=== PATIENT | female | born 1970 | race Caucasian/White ===

== ENCOUNTER → 2017-11-30 | Outpatient (CLI) | payer BC ==
--- NOTE | 2017-11-30 13:55 | RADIOLOGY IMAGING REPORT ---
FACILITY: [facility] PATIENT NAME: CHELLY HULL : [id number] MR: [id number] V: [id number] EXAM DATE: ORDERING PHYSICIAN: ANGEL ALBERTS TECHNOLOGIST: Jessica Rinaldi PROCEDURE:BILATERAL DIGITAL SCREENING MAMMOGRAM WITH CAD ASSISTED INTERPRETATION & 3D TOMOSYNTHESIS COMPARISON:Prior mammograms 07/26/16, 06/23/15, 05/28/14, 05/08/13, 04/18/12, 03/22/11. INDICATIONS:SCREENING FINDINGS: Mildly heterogeneous fibroglandular tissue is seen throughout the breasts. The parenchymal pattern has remained stable allowing for difference in mammographic technique & patient positioning. There is no evidence of malignant appearing mass, malignant appearing calcifications or other secondary sign of malignancy in either breast. DIAGNOSTIC CATEGORY 2--BENIGN FINDING. RECOMMENDATIONS: ROUTINE MAMMOGRAM AND CLINICAL EVALUATION. IMPRESSION: BIRADS 2: Benign finding No significant abnormality is seen Dictated by: Marianela Flood M.D. on 11/30/2017 at 11:54 Transcribed by: GIDEON on 11/30/2017 at 13:20 Approved by: Marianela Flood M.D. on 11/30/2017 at 13:54 [facility]
== END ==
LOC: MAMO 10:01
PROVIDERS: ATTEND Nurse Practitioner Family
DX: Z12.31 Encounter for screening mammogram for malignant neoplasm of breast (principal)
CPT/HCPCS: 77063; 77067

== ENCOUNTER 2018-02-26 12:23 | Emergency (ER) | payer BC ==
[2018-02-26] MEDS ORDERED: FLUO40CA76 PO (12:28)
[2018-02-26] MEDS ORDERED: FLU44R INH (12:28)
[2018-02-26] MEDS ORDERED: OMEP40CA48 PO (12:28)
--- NOTE | 2018-02-26 12:35 | ER Report ---
History and Physical Time Seen By MD: 12:35 HPI/ROS CHIEF COMPLAINT: Dyspnea, allergic reaction HISTORY OF PRESENT ILLNESS: Patient is a 47-year-old female with no significant past medical history presents with hive-like rash to face chest back of the neck arms and legs. Symptoms started Sunday evening. Just to the wrist. Patient can think of no new contacts in terms of chemicals exposures to pets or change in deodorants or medications. She was seen by her primary care provider yesterday and given Benadryl to take every 6 hours along with Flonase. Since that time patient states symptoms worsened and when she woke this morning she was feeling burning in the face having a bronchospastic cough along with hives. Patient denies any infectious symptoms including fevers or chills. She denies any chest pain or chest pressure. REVIEW OF SYSTEMS: Constitutional: No fever, no chills. Eyes: No discharge. ENT: No sore throat. Cardiovascular: No chest pain, no palpitations. Respiratory: Cough without shortness of breath Gastrointestinal: No abdominal pain, no vomiting. Genitourinary: No hematuria. Musculoskeletal: No back pain. Skin: Hives Neurological: No headache. Allergies: Coded Allergies: fluconazole (Verified Allergy, Severe, 02/26/18) sulfamethoxazole (Verified Allergy, Severe, 02/26/18) tramadol (Verified Allergy, Severe, 02/26/18) trimethoprim (Verified Allergy, Severe, 02/26/18) Home Meds Reported Medications Albuterol Sulfate 90 Mcg/Act (PROAIR HFA 90 MCG/ACT) 8.5 Gm Hfa.aer.ad, 1-2 PUFF IH 3-4XD, INHALER 02/26/18 Omeprazole (OMEPRAZOLE) 40 Mg Capsule.dr, 40 MG PO QDAY, CAP 02/26/18 Fluticasone Prop 44 Mcg (FLOVENT HFA 44 MCG) 44 Mcg Inha, 44 MCG INH PRN, INH 02/26/18 Fluoxetine Hcl (PROZAC) 40 Mg Capsule, 40 MG PO QDAY, CAPSULE 02/26/18 Past Medical/Surgical History Noncontributory Constitutional Vital Sign - Last 24 Hours 02/26/18 02/26/18 02/26/18 02/26/18 12:27 12:28 12:30 12:38 Temp 98.2 Pulse 79 83 Resp 20 B/P (MAP) 149/74 (99) 149/74 149/97 (114) Pulse Ox 97 97 O2 Delivery Room Air 02/26/18 02/26/18 02/26/18 02/26/18 12:53 13:00 13:08 13:23 Pulse 81 83 93 B/P (MAP) 143/99 (114) Pulse Ox 98 99 99 02/26/18 13:30 B/P (MAP) 124/67 (86) Intake and Output 02/26/18 02/26/18 02/27/18 15:00 23:00 07:00 Intake Total 50 ml Balance 50 ml Physical Exam General Appearance: The patient is alert, has no immediate need for airway protection and no signs of toxicity. Eyes: Pupils equal and round no pallor or injection. ENT, Mouth: Mucous membranes are moist. Respiratory: There are no retractions, lungs are clear to auscultation. Cardiovascular: Regular rate and rhythm. Gastrointestinal: Abdomen is soft and non tender, no masses, bowel sounds normal. Neurological: Awake and alert Skin: Giant urticaria Musculoskeletal: Neck is supple non tender. Extremities are nontender, nonswollen and have full range of motion. Medical Decision Making ED Course/Re-evaluation ED Course 02/26/2018 12:47:26 pm plan at this time will be to place an IV we will give IM epinephrine 1-1000 concentration along with 50 mg of IV Benadryl, 20 mg of IV Pepcid, and 125 mg of IV Solu-Medrol. Re-evaluation 02/26/2018 1:35:15 pm symptoms have resolved after 0.3 mg of IM epinephrine, 50 mg of IV Benadryl 125 mg of IV Solu-Medrol, and 29 g of IV Pepcid. Decision to Disposition Date: February 26, 2018 Decision to Disposition Time: 13:35 Depart Departure Latest Vital Signs Vital Signs Date Time Temp Pulse Resp B/P (MAP) Pulse Ox O2 Delivery O2 Flow Rate FiO2 02/26/18 13:30 124/67 (86) 02/26/18 13:23 93 99 02/26/18 12:28 98.2 20 Room Air Impression: Primary Impression: Hives Condition: Improved Disposition: HOME OR SELF-CARE New Scripts Methylprednisolone (METHYLPREDNISOLONE) 4 Mg Tab.ds.pk 4 MG PO DIRECTED, #21 TAB Prov: KASARDA,ALEXANDRA C MD 02/26/18 Famotidine (PEPCID) 20 Mg Tablet 20 MG PO BID for 3 Days, #6 TAB Prov: ALEXANDRA MCKAY MD 02/26/18 Patient Instructions: Urticaria (ED) Additional Instructions: Continue to take Benadryl, 25-50 mg every 6 hours for the next 72 hours then as needed for rash or itching. Take the Pepcid 20 mg twice a day for the next 72 hours. Take the Solu-Medrol dose pack as directed. ALEXANDRA MCKAY MD February 26, 2018 12:35
[2018-02-26] MEDS ORDERED: ALBU8.5H IH (12:36)
[2018-02-26] MEDS ORDERED: methylPREDNIS SUCC 125 MG/2ML IVP ONE (12:40)
[2018-02-26] MEDS ORDERED: EPINEPHrine 0.3 MG SYR IM ONLY ONE (12:40)
[2018-02-26] MEDS ORDERED: diphenhydrAMINE 50 MG/ML VIAL IVP ONE (12:40)
[2018-02-26] MEDS ORDERED: FAMOTIDINE(*) 20MG/50ML PREMIX 50 ML IVPB ONE (12:40)
[2018-02-26 13:30] VITALS: BP 124/67
[2018-02-26] MEDS ORDERED: METH4TAB66 PO (13:37)
[2018-02-26] MEDS ORDERED: FAMO20TA28 PO (13:37)
== END 2018-02-26 13:47 | disposition home or self-care (01) ==
LOC: ER 12:37
DX: L50.0 Allergic urticaria (principal)
CPT/HCPCS: 96365; 96372; 96375; 99284; J0171; J1200; J2930; J3490

== ENCOUNTER → 2019-01-07 | Outpatient (CLI) | payer BC ==
[~2019-01-07] MED LIST: ALBU8.5H IH; FAMO20TA28 PO; FLU44R INH; FLUO40CA76 PO; METH4TAB66 PO; OMEP40CA48 PO
--- NOTE | 2019-01-08 08:23 | RADIOLOGY IMAGING REPORT ---
[place] [facility] [place] NAME: CHELLY HULL : [id number] MR: [id number] V: [id number] EXAM DATE: [id number] ORDERING PHYSICIAN: KARO MICHEL TECHNOLOGIST: Sanna Perales PROCEDURE:BILATERAL DIGITAL SCREENING MAMMOGRAM WITH CAD ASSISTED INTERPRETATION & 3D TOMOSYNTHESIS COMPARISON:Prior mammograms 11/30/17, 07/26/16, 06/23/15, 05/28/14, 05/20/13, 05/08/13. INDICATIONS:SCREENING FINDINGS: There are scattered areas of fibroglandular density throughout the breasts. The parenchymal pattern has remained stable allowing for difference in mammographic technique & patient positioning. DIAGNOSTIC CATEGORY 1--NEGATIVE. RECOMMENDATIONS: ROUTINE MAMMOGRAM AND CLINICAL EVALUATION. IMPRESSION: BIRADS 1: Negative. No significant abnormality is seen. Dictated by: Marianela Flood M.D. on 01/07/2019 at 15:04 Transcribed by: GIDEON on 01/07/2019 at 15:10 Approved by: Marianela Flood M.D. on 01/08/2019 at 8:21 [facility]
== END ==
LOC: MAMO 01:39
PROVIDERS: ATTEND Nurse Practitioner
DX: Z12.31 Encounter for screening mammogram for malignant neoplasm of breast (principal)
CPT/HCPCS: 77063; 77067